=== PATIENT | male | born 1945 | race Caucasian/White ===

== ENCOUNTER 2019-11-09 12:49 | Emergency (ER) | payer MEDICARE, OTHER, SELFPAY ==
[2019-11-09 12:50] VITALS: BP 151/87; PULSE 89; RESP 18; TEMP 37.3; O2SAT 97; BMI 32.1
[2019-11-09 13:21] VITALS: BP 151/87; PULSE 85; O2SAT 97
--- NOTE | 2019-11-09 13:25 | CT_ITS ---
PROCEDURE: CT ABDOMEN PELVIS WO CON CLINICAL INDICATION: flank pain left-sided COMPARISON: No exams were available for comparison TECHNIQUE: Axial images obtained with sagittal and coronal reformats. All CT scans at the facility use one or more dose reduction, viz: automated exposure control, ma/kV adjustment per patient size (including targeted exams where dose is matched to indication, i.e. head), or iterative reconstruction technique. FINDINGS: Lower thorax: No acute finding ABDOMEN: Liver: The liver is normal in size and shows slightly overall decreased attenuation suggesting mild hepatic steatosis. Gallbladder: The gallbladder is contracted and shows increased attenuation suggesting biliary sludge though no definite gallstones are seen. Pancreas: No masses or peripancreatic fluid collections. Spleen: unremarkable Adrenals: unremarkable Kidneys/ureters: The kidneys are normal size and nonobstructing calculi in each kidney. However there is a 2-3 mm calculus mid left ureter causing mild fullness of the left renal pelvis. ABDOMEN & PELVIS: Stomach bowel: There is a small sliding hiatal hernia. The stomach and small bowel appear normal. There is moderate scattered stool and gas seen throughout the colon. Peritoneum: No abnormal fluid collections. No obvious inflammatory changes. No free air. Lymph nodes: No enlarged lymph nodes apparent. Vasculature: There is minimal scattered arteriosclerotic calcification of the abdominal aorta but there is no aneurysm. Bones: There prominent degenerate changes lower thoracic spine. PELVIS: Reproductive: unremarkable there are small bilateral inguinal hernias containing fat only. Bladder: The bladder is decompressed showing mildly thickened wall. The prostate is markedly enlarged impressing upon the base of the urinary bladder. Appendix: Unremarkable. No distention or periappendiceal phlegmonous change. IMPRESSION: 2-3 mm calculus mid left ureter causing mild obstructive uropathy of the left kidney. Mild hepatic steatosis noted Dictated by: Dr. Sam Barnes MD 11/09/2019 14:[address] Sam Barnes MD in [place] 11/09/2019 14:28
[2019-11-09 13:43] LABS: Microscopic, Urine URINE MICROSCOPIC (MICROSCOPIC)
[2019-11-09 13:44] LABS: Appearance,Urine CLEAR (Clear); Bilirubin,Urine Negative (Negative); Blood, Urine 1+ (Negative); Color,Urine YELLOW (Yellow); Glucose,Urine (UA) 3+ (Negative); Ketones,Urine TRACE (Negative); Leukocyte Esterase,Urine Negative (Negative); Nitrate,Urine Negative (Negative); Protein,Urine Negative (Negative); Specific Gravity, Urine 1.025 (1.005-1.030); Urobilinogen,Urine 0.2 EU/dl (0.2)
[2019-11-09 13:46] LABS: Basophils % 0.2 % (0.1-2.0); Eosinophils # 0.1 K/mm3 (0.0-0.4); Eosinophils % 0.6 % (0.1-12.0); Hematocrit 45.2 % (42.0-52.0); Hemoglobin 15.3 g/dL (14.1-18.0); Lymphocytes # 1.7 K/mm3 (0.7-4.5); Mean Corpuscular HGB Conc 33.9 g/dL (31.8-35.4); Mean Corpuscular Hemoglobin 31.6 pg (27.0-31.2); Mean Corpuscular Volume 93.2 fl (80-94); Monocytes # 0.7 K/mm3 (0.1-1.0); Monocytes % 5.1 % (1.7-9.3); Neutrophils # 11.9 K/mm3 (1.8-7.8); Neutrophils % 82.2 % (37.0-80.0); Platelet Count 212 K/mm3 (142-424); Red Blood Count 4.85 M/mm3 (4.60-6.20); Red Cell Distribution Width 13.2 % (11.5-17.5); White Blood Count 14.5 K/mm3 (4.8-10.8)
[2019-11-09 13:56] LABS: Alanine Aminotransferase 34 U/L (12-78); Albumin Level 4.7 g/dl (3.5-5.0); Albumin/Globulin Ratio 1.3 (1.1-1.8); Alkaline Phosphatase 62 U/L (38-126); Aspartate Amino Transferase 35 U/L (17-59); Bacteria,Urine Trace /lpf; Blood Urea Nitrogen 26 mg/dl (9-20); Calcium 10.2 mg/dl (8.4-10.2); Carbon Dioxide 22 mmol/L (22.0-30.0); Chloride 100 mmol/L (98-107); Creatinine Clearance Estimated 62 mL/min (50-200); Estimated Glomerular Filt Rate 43 ml/min (>60); GFR (African American) 52 ML/MIN (>60); Globulin 3.5 g/dL (1.3-3.2); Glucose 273 mg/dl (74-100); Sodium 135 mmol/L (136-145); Total Protein,Serum 8.2 g/dl (6.3-8.2)
--- NOTE | 2019-11-09 14:21 | PC.NURSE ---
Pt returned from rad
--- NOTE | 2019-11-09 14:45 | [facility].EDGENADL ---
ED Disposition Clinical Impression: Left ureteral calculus Disposition: Home, Self-Care Condition on Discharge: Good Instructions: DI for Kidney Stones Additional Instructions: Cipro as prescribed. Flomax as prescribed. Percocet as needed for pain. Zofran as needed for nausea. Additional instructions for KIDNEY STONE (URETERAL CALCULUS): See Dr. Chau as soon as possible for further evaluation. Drink plenty of fluids. Strain your urine and save any stones you catch. Return immediately if you develop a fever or have uncontrollable vomiting or uncontrollable pain. Additional instructions for CONTROLLED SUBSTANCES: You have been prescribed a medication that is a controlled substance. Controlled substances include pain medications known as opiates and sedative nerve medications known as benzodiazepines. Tramadol, fioricet, and gabapentin are also controlled substances. Some common opiates include: Codeine (such as Tylenol #3) Hydrocodone (Vicodin, Lortab, Lorcet, Mozelle) Oxycodone (Percocet, Percodan, Oxycodone, Oxy IR) Some common benzodiazepines include: Diazepam (Valium) Lorazepam (Ativan) Alprazolam (Xanax) Clonazepam (Klonopin) Oxazepam (Serax) All of these controlled substances are highly addictive and frequently abused. Misuse can and frequently does lead to addiction as well as overdose and . Medication should be stored in a locked cabinet or other secure storage unit. Do not store the medication in a motor vehicle. Short term supplies, 3 days or less, are prescribed because of the highly addictive nature of the medication. Any of the controlled substance medication NOT taken should be disposed of properly and NOT SAVED. The recommended method of disposing of unused medications is: Place the medicines in a sealable plastic bag. If the medicine is a solid, crush it or add water to dissolve it. Add something undesirable (cat litter, coffee grounds, etc.) Dispose of sealed bag in household trash Do not flush or pour unused medicines down a sink or drain. Controlled substances should not be shared, given away or sold. Because of the addictive nature and frequent abuse, these medications are sometimes stolen. These medications should be kept in a safe place where they cannot be stolen. Do not keep them in your car or purse. Lost or stolen prescriptions for controlled substances WILL NOT BE REFILLED in this emergency department, regardless of whether a police report was filed. Prescriptions: Oxycodone HCl/Acetaminophen [Percocet 5/325mg tablet] 1 tab PO Q6HP PRN #10 tab PRN Reason: Moderate To Severe Pain Prescription Printed Ciprofloxacin HCl [Ciprofloxacin 500mg Tab] 500 mg PO BID #20 tab Prescription Printed Tamsulosin HCl [Flomax 0.4mg capsule] 0.4 mg PO HS #10 cap.er.24h Prescription Printed Ondansetron [Zofran 4mg ODT] 4 mg PO TIDP PRN #10 tab.rapdis PRN Reason: Nausea And Vomiting Prescription Printed Referrals: Provider,MD Irina [Primary Care Provider] - Juwan Chau MD [Staff Physician] - - Critical Care Critical Care Time: No Attestation: On 11/09/19, the high probability of a clinically significant, sudden or life threatening deterioration of the following system(s) required my full and direct attention, intervention and personal management. The time I documented below is in addition to time spent performing reported procedures but includes the following listed in this critical care notation. Medical Decision Making - Harshal Inquiry Pt receiving controlled substance: Yes Harshal was queried for this patient: No Reason not queried -: Emergent pt cond-no time Risks and benefits of using a controlled substance: were discussed with pt by me Vital Signs: 11/09/19 12:50 11/09/19 13:21 Temperature 99.2 F Temperature Source Oral Pulse Rate [Right Brachial] 89 85 Respiratory Rate 18 Blood Pressure [Right Arm] 151/87 H 151/87 H Blood Pressure
[2019-11-09 15:30] VITALS: BP 150/77; PULSE 74; RESP 16; TEMP 36.8; O2SAT 98
== END 2019-11-09 15:32 | disposition home or self-care (01) ==
PROVIDERS: Emergency Provider Emergency Medicine
DX: N20.1 Calculus of ureter (principal); E11.9 Type 2 diabetes mellitus without complications
CPT/HCPCS: 74176; 80053; 81001; 85025; 96374; 96375; 99284

== ENCOUNTER → 2019-11-19 15:26 | Outpatient (CLI) | payer MEDICARE, OTHER, SELFPAY ==
--- NOTE | 2019-11-19 15:34 | XR_ITS ---
PROCEDURE: XR KUB CLINICAL INDICATION: ureteral stone COMPARISON: CT ABDOMEN PELVIS WO CON from 11/09/2019 FINDINGS: Gas pattern-The bowel gas pattern is unremarkable. No obvious obstruction. Calcifications-No abnormal calcifications are evident. No obvious renal or ureteral calculi. Bones-No acute bony anomalies evident. There are mild osteoarthritic changes of the hips IMPRESSION: No acute findings. Dictated by: Tapan Lovelace MD 11/19/2019 15:52 Electronically signed by Tapan Lovelace MD in [place] 11/19/2019 15:52
[2019-12-08 19:30] LABS: Specimen Type NOT PROVIDED
[2019-12-08 19:31] LABS: Composition SEE BELOW:; Photo TO FOLLOW
== END ==
PROVIDERS: Visit Provider Urology
DX: N20.1 Calculus of ureter (principal); N20.0 Calculus of kidney
CPT/HCPCS: 74018; 82370

== ENCOUNTER 2023-07-13 09:58 | Outpatient (CLI) | payer MEDICARE, OTHER, SELFPAY ==
--- NOTE | 2023-07-13 10:03 | XR_ITS ---
FINAL REPORT CLINICAL HISTORY: LT HIP PAIN COMPARISON: None FINDINGS: LEFT HIP: Two views of the left hip and an AP view of the pelvis demonstrate no acute fracture or dislocation. There is mild degenerative change in both hips and the lower lumbar spine. Calcification adjacent to the left hip measuring 9 mm is likely a loose body. The visualized bony structures are well aligned. No soft tissue abnormality is seen. IMPRESSION: Mild degenerative changes without acute bony abnormality. 9 mm loose body adjacent to the left hip. Reviewed, Interpreted and Dictated by Shaun Cameron III, MD Transcribed by Judy Suarez Authenticated and [facility]
--- NOTE | 2023-07-13 10:03 | XR_ITS ---
FINAL REPORT CLINICAL HISTORY: LOW BACK PAIN COMPARISON: None FINDINGS: 5 views of the lumbar spine were obtained. There is no evidence of fracture or dislocation. There is 6 mm of anterolisthesis of L4 on L5. Mild and moderate degenerative changes are present. Multilevel facet osteoarthropathy is present in the lower lumbar spine. A mild rightward curvature of the lumbar spine is present. Vascular calcifications are noted. IMPRESSION: Mild and moderate degenerative change with anterolisthesis of L4 on L5 and multilevel facet osteoarthropathy. Reviewed, Interpreted and Dictated by Shaun Cameron III, MD Transcribed by Libby Christine Authenticated and [facility]
== END 2023-07-13 23:59 ==
PROVIDERS: PCP Family Medicine; Visit Provider Family Medicine
DX: M54.50 Low back pain, unspecified (principal); M25.552 Pain in left hip
CPT/HCPCS: 72110; 73502